=== PATIENT | male | born 1985 ===

== ENCOUNTER → 2016-11-08 | Outpatient (CLI) | payer BC, OTHER ==
[2016-11-08 13:41] LABS: ALT/SGPT 31 U/L (12-78); CHOLESTEROL 266 mg/dl (0-200); CHOLESTEROL/HDL RATIO 4.9; HDL CHOLESTEROL 54 mg/dl; TRIGLYCERIDES 69 mg/dl (0-150); VERY LOW DENSITY LIPOPROT CALC 14 mg/dl
== END | disposition home or self-care (01) ==
LOC: C.LABMFLN 08:09
PROVIDERS: ATTEND Family Medicine
DX: E78.00 Pure hypercholesterolemia, unspecified (principal)

== ENCOUNTER → 2017-11-14 | Outpatient (CLI) | payer OTHER ==
[2017-11-14 13:31] LABS: ALT/SGPT 45 U/L (12-78); BLOOD UREA NITROGEN 17 mg/dl (7-18); CALCIUM 8.8 mg/dl (8.5-10.1); CARBON DIOXIDE 29 mmol/L (21-32); CHOLESTEROL 265 mg/dl (0-200); CREATININE 0.76 mg/dl (0.60-1.40); GLUCOSE 83 mg/dl (70-99); POTASSIUM 3.6 mmol/L (3.5-5.1); SODIUM 139 mmol/L (136-145)
[2017-11-14 13:33] LABS: LDL CHOLESTEROL (DIRECT) 182 mg/dl
== END | disposition home or self-care (01) ==
LOC: C.LABMFLN 07:09
PROVIDERS: ATTEND Family Medicine
DX: E78.00 Pure hypercholesterolemia, unspecified (principal)